=== PATIENT | female | born 1985 | race Two or more races ===

== ENCOUNTER → 2018-07-06 | Outpatient (CLI) | payer MEDICAID | LOC: FIMAGING 13:25 | PROVIDERS: ATTEND Obstetrics & Gynecology | DX: Z36.89 Encounter for other specified antenatal screening (principal) ==

== ENCOUNTER → 2018-07-27 | Outpatient (CLI) | payer MEDICAID | LOC: FIMAGING 13:41 | PROVIDERS: ATTEND Obstetrics & Gynecology | DX: Z34.82 Encounter for supervision of other normal pregnancy, second trimester (principal); Z3A.22 22 weeks gestation of pregnancy ==